=== PATIENT | male | born 1960 | race Caucasian/White ===

== ENCOUNTER 2018-04-16 10:10 | Inpatient (IN) | payer OTHER ==
[~2018-04-16] VITALS: Ht 175.3 cm; Wt 76.2 kg
[2018-04-16 10:53] LABS: BASOPHILS ABSOLUTE AUTO 0.03 K/mm3 (0.00-0.23); BASOPHILS PERCENT AUTO 1 % (0-2); EOSINOPHILS ABSOLUTE AUTO 0.01 K/mm3 (0.00-0.68); EOSINOPHILS PERCENT AUTO 0 % (0-6); Hematocrit 36.2 % (37.0-53.0); Hemoglobin 11.7 g/dL (13.5-17.5); IMMATURE GRAN ABSOLUTE AUTO 0.01 K/mm3 (0.00-0.10); IMMATURE GRAN PERCENT AUTO 0 % (0-1); LYMPHOCYTES ABSOLUTE AUTO 0.84 K/mm3 (0.84-5.20); LYMPHOCYTES PERCENT AUTO 20 % (21-46); MONOCYTES ABSOLUTE AUTO 0.32 K/mm3 (0.16-1.47); MONOCYTES PERCENT AUTO 8 % (4-13); Mean Corpuscular HGB 33.2 pg (26.0-34.0); Mean Corpuscular HGB Conc 32.3 g/dL (31.5-36.5); Mean Corpuscular Volume 103 fL (80-100); Mean Platelet Volume 10.4 fL (9.1-12.4); NEUTROPHILS ABSOLUTE AUTO 3.02 K/mm3 (1.96-9.15); NEUTROPHILS PERCENT AUTO 71 % (41-73); Platelet Count 58 K/mm3 (150-400); RDW Coefficient Variation 13.9 % (11.7-14.2); RDW Standard Deviation 52.9 fL (35.1-46.3); Red Blood Cell Count 3.52 M/mm3 (4.30-5.90); White Blood Cell Count 4.23 K/mm3 (4.00-11.30)
[2018-04-16 11:19] LABS: Alanine Aminotransfer (ALT/SGP 127 U/L (12-78); Albumin, Blood 3.3 g/dL (3.4-5.0); Albumin/Globulin Ratio 0.6 (0.8-1.8); Alk Phos 132 U/L (50-136); Anion Gap 14 mmol/L (6-16); Aspartate Aminotrans (AST/SGOT 247 U/L (12-37); Bilirubin, Total 1.3 mg/dL (0.1-1.0); Blood Urea Nitrogen 8 mg/dL (8-24); CO2, Blood 21 mmol/L (21-32); Calcium, Blood 8.3 mg/dL (8.5-10.1); Chloride, Blood 103 mmol/L (98-108); Creatinine, Blood 0.62 mg/dL (0.60-1.20); Globulin, Blood 5.6 g/dL (2.2-4.0); Glomerular Filtration Rate >60 (60-); Glucose, Blood 130 mg/dL (70-99); Sodium, Blood 138 mmol/L (136-145); Total Protein, Blood 8.9 g/dL (6.4-8.2)
[2018-04-16 12:30] LABS: International Normalized Ratio 1.18
[2018-04-16] MEDS ORDERED: K-Dur20 MEQ PO (14:10)
[2018-04-16] MEDS ORDERED: Ibuprofen Ib200 MG PO (18:01)
[2018-04-16] MEDS ORDERED: CYAN500 PO (18:01)
--- NOTE | 2018-04-16 18:21 | NUR ---
NURSING PCU DAYSHIFT SUMMARY: Assumed care of pt at approx 1750. Arrived from the ER via gurney, slid to unit bed and repositioned supine. A/O, pleasant, coopertive w/care. Speech is mildly slurred, general weakness noted. Mild tremors present w/arms extended. Current CIWA 4. Tele in place, NSR, no c/o CP/pressure, no noted edema. Respiratory status stable, denies dyspnea, no noted cough. Abd SNT, BT+, c/o mild nausea, voiding w/o difficulty per pt. PIV x2, banana bag currently infusing at 200cc/hr. No s/s of acute distress at this time. Pt appears to be resting comfortably. Educated pt on plan of care and w/d treatment, verbalized understanding. Bed alarm is set for safety purposes, cont to monitor until rpt is given to NOC RN.
--- NOTE | 2018-04-17 03:39 | NUR ---
PT PREFERS NOT TO TAKE TYLENOL FOR FEVER. TEMPERATURE TURNED DOWN IN THE ROOM. BLANKET REMOVED. CALL LIGHT WITHIN REACH. BED IN LOW POSITION.
[2018-04-17 04:17] LABS: BASOPHILS ABSOLUTE AUTO 0.02 K/mm3 (0.00-0.23); BASOPHILS PERCENT AUTO 1 % (0-2); EOSINOPHILS ABSOLUTE AUTO 0.03 K/mm3 (0.00-0.68); EOSINOPHILS PERCENT AUTO 1 % (0-6); Hematocrit 31.5 % (37.0-53.0); Hemoglobin 10.2 g/dL (13.5-17.5); IMMATURE GRAN ABSOLUTE AUTO 0.01 K/mm3 (0.00-0.10); IMMATURE GRAN PERCENT AUTO 0 % (0-1); LYMPHOCYTES ABSOLUTE AUTO 0.84 K/mm3 (0.84-5.20); LYMPHOCYTES PERCENT AUTO 23 % (21-46); MONOCYTES ABSOLUTE AUTO 0.38 K/mm3 (0.16-1.47); MONOCYTES PERCENT AUTO 10 % (4-13); Mean Corpuscular HGB 32.8 pg (26.0-34.0); Mean Corpuscular HGB Conc 32.4 g/dL (31.5-36.5); Mean Corpuscular Volume 101 fL (80-100); Mean Platelet Volume 11.6 fL (9.1-12.4); NEUTROPHILS ABSOLUTE AUTO 2.38 K/mm3 (1.96-9.15); NEUTROPHILS PERCENT AUTO 65 % (41-73); RDW Coefficient Variation 13.8 % (11.7-14.2); RDW Standard Deviation 51.5 fL (35.1-46.3); Red Blood Cell Count 3.11 M/mm3 (4.30-5.90); White Blood Cell Count 3.66 K/mm3 (4.00-11.30)
[2018-04-17 04:26] LABS: Platelet Count 41 K/mm3 (150-400)
[2018-04-17 04:33] LABS: Alanine Aminotransfer (ALT/SGP 100 U/L (12-78); Albumin, Blood 2.5 g/dL (3.4-5.0); Albumin/Globulin Ratio 0.5 (0.8-1.8); Alk Phos 96 U/L (50-136); Anion Gap 5 mmol/L (6-16); Aspartate Aminotrans (AST/SGOT 192 U/L (12-37); Bilirubin, Total 1.3 mg/dL (0.1-1.0); Blood Urea Nitrogen 9 mg/dL (8-24); Bun/Creatinine Ratio 14.4 (12.0-20.0); CO2, Blood 27 mmol/L (21-32); Calcium, Blood 7.6 mg/dL (8.5-10.1); Chloride, Blood 107 mmol/L (98-108); Creatinine, Blood 0.63 mg/dL (0.60-1.20); Globulin, Blood 5.1 g/dL (2.2-4.0); Glomerular Filtration Rate >60 (60-); Glucose, Blood 95 mg/dL (70-99); Potassium, Blood 3.9 mmol/L (3.5-5.5); Sodium, Blood 139 mmol/L (136-145); Total Protein, Blood 7.6 g/dL (6.4-8.2)
--- NOTE | 2018-04-17 05:39 | NUR ---
SHIFT SUMMARY - NO ACUTE CHANGES THROUGHOUT THE NIGHT. CIWA WNL DURING THE NIGHT. PT STOOD AT THE BEDSIDE X1, STABLE ON HIS LEGS, NOT REQUIRING A WALKER, OR GAIT BELT, AND URINATED CLEAR [place] COLORED URINE IN THE URINAL. FLUIDS AT BEDSIDE. CALL LIGHT WITHIN REACH. BED IN LOW POSITION.
--- NOTE | 2018-04-17 07:34 | NUR ---
NURSING PCU DAYSHIFT: Assumed care of pt at approx 0700. A/O, pleasant, coopertive w/care. Mild anxiety noted this morning along w/mild tremors of UE's when extended, current CIWA 3. Skin is fairly intact w/facial rash noted which is chronic per pt. C/O chronic numbness present in b/l hands. Tele in place, NSR w/PVC's, no c/o CP/pressure, BP stable, no noted edema. L/S cta t/o, O2 sat mid 90's on RA, denies dyspnea. Abd SNT, BT+, denies nausea, voiding w/o difficulty per pt. PIV x2, NS infusing at 150cc/hr. No s/s of acute distress at this time. Call light remains in reach, bed alarm set for safety purposes. Pt denies any current needs or questions regarding plan of care. Awaiting rounding from PMD, cont to monitor for any changes.
--- NOTE | 2018-04-17 17:11 | NUR ---
NURSING PCU DAYSHIFT SUMMARY: No significant changes noted t/o the shift. Pt has experienced an intermittent temp up to 101.2 though this improves w/environement management. Pt continues to be cooperative w/care and has been calling appropriately for assistance. Tremors have increased and pt has c/o mild anxiety, also stated that the current month was May and was unable to name the president. Current CIWA 8 and bed alarms remain in use for safety purposes. Pt OOB to shower w/assistance, tolerated well, linen change completed. Family at bedside this evening, update provided and questions answered. Pt denies any questions/needs at this time, call light in reach, cont to monitor until rpt is given to NOC RN.
[2018-04-18 03:43] LABS: BASOPHILS ABSOLUTE AUTO 0.01 K/mm3 (0.00-0.23); BASOPHILS PERCENT AUTO 0 % (0-2); EOSINOPHILS ABSOLUTE AUTO 0.07 K/mm3 (0.00-0.68); EOSINOPHILS PERCENT AUTO 2 % (0-6); Hematocrit 31.8 % (37.0-53.0); Hemoglobin 10.5 g/dL (13.5-17.5); IMMATURE GRAN ABSOLUTE AUTO 0.01 K/mm3 (0.00-0.10); IMMATURE GRAN PERCENT AUTO 0 % (0-1); LYMPHOCYTES PERCENT AUTO 30 % (21-46); MONOCYTES ABSOLUTE AUTO 0.39 K/mm3 (0.16-1.47); MONOCYTES PERCENT AUTO 9 % (4-13); Mean Corpuscular HGB 32.7 pg (26.0-34.0); Mean Corpuscular Volume 99 fL (80-100); Mean Platelet Volume 11.4 fL (9.1-12.4); NEUTROPHILS ABSOLUTE AUTO 2.58 K/mm3 (1.96-9.15); NEUTROPHILS PERCENT AUTO 59 % (41-73); RDW Coefficient Variation 13.4 % (11.7-14.2); RDW Standard Deviation 48.8 fL (35.1-46.3); Red Blood Cell Count 3.21 M/mm3 (4.30-5.90); White Blood Cell Count 4.36 K/mm3 (4.00-11.30)
[2018-04-18 03:48] LABS: Platelet Count 40 K/mm3 (150-400)
--- NOTE | 2018-04-18 05:42 | NUR ---
SHIFT SUMMARY - NO ACUTE CHANGES THROUGHOUT THIS SHIFT. PT WAS AMBULATORY TO [facility] WITH [facility] - PT WAS STABLE ON HIS FEET. CIWA WNL THROUGHOUT THE NIGHT. PT HAS DENIED ANY PAIN OR DISCOMFORT DURING THE NIGHT. CALL LIGHT WITHIN REACH. BED IN LOW POSITION. BED ALARM ON FOR PT SAFETY.
--- NOTE | 2018-04-18 18:00 | NUR ---
SHIFT SUMMARY PT RESTING IN CHAIR IN ROOM. AOX4. PT HAS BEEN INDEPENDENT IN ROOM PER PT. REPORTS SLIGHT TREMORS THAT ARE FELT BUT NOT SEEN. PT REPORTS FEELS MUCH BETTER. CIWA SCORES HAVE BEEN 1-2 T/O SHIFT. PT WAS CHANGED TO MED STATUS NO TELE. TELE REMOVED. NO ACUTE CHANGES T/O SHIFT. CALL LIGHT IN REACH.
[2018-04-19 04:02] LABS: BASOPHILS ABSOLUTE AUTO 0.01 K/mm3 (0.00-0.23); BASOPHILS PERCENT AUTO 0 % (0-2); EOSINOPHILS ABSOLUTE AUTO 0.08 K/mm3 (0.00-0.68); EOSINOPHILS PERCENT AUTO 2 % (0-6); Hematocrit 32.5 % (37.0-53.0); Hemoglobin 10.8 g/dL (13.5-17.5); IMMATURE GRAN ABSOLUTE AUTO 0.02 K/mm3 (0.00-0.10); IMMATURE GRAN PERCENT AUTO 0 % (0-1); LYMPHOCYTES ABSOLUTE AUTO 0.99 K/mm3 (0.84-5.20); LYMPHOCYTES PERCENT AUTO 21 % (21-46); MONOCYTES ABSOLUTE AUTO 0.42 K/mm3 (0.16-1.47); MONOCYTES PERCENT AUTO 9 % (4-13); Mean Corpuscular HGB Conc 33.2 g/dL (31.5-36.5); Mean Corpuscular Volume 99 fL (80-100); Mean Platelet Volume 12.1 fL (9.1-12.4); NEUTROPHILS ABSOLUTE AUTO 3.24 K/mm3 (1.96-9.15); NEUTROPHILS PERCENT AUTO 68 % (41-73); RDW Coefficient Variation 13.4 % (11.7-14.2); Red Blood Cell Count 3.27 M/mm3 (4.30-5.90); White Blood Cell Count 4.76 K/mm3 (4.00-11.30)
[2018-04-19 04:25] LABS: Platelet Count 42 K/mm3 (150-400)
--- NOTE | 2018-04-19 05:58 | NUR ---
SHIFT SUMMARY PATIENT ALERT AND ORIENTED AND INDEPENDENT T/O SHIFT. HE HAD NO ACUTE CHANGES TO VITALS OR LOC. PT SLEPT WELL T/O SHIFT. PT HAS HAD CIWA SCORES OF 2, DUE TO BASELINE TREMORS. HE DENIED ANY PAIN, DISCOMFORT, NAUSEA, VOMITING, OR HEADACHE. PT HAS BEEN COMMUNICATING EFFECTIVELY WITH STAFF AND HAS BEEN PLEASANT AND COOPERATIVE WITH VITALS AND ASSESSMENTS. HE HAS CALL LIGHT IN REACH AND USED IT APPROPRIATELY. HIS BED IS IN THE LOWEST POSITION AND HAS 2X SIDE RAILS IN PLACE. PT WILL CONTINUE TO BE MONITORED UNITL HANDOFF TO DAYSHIFT RN.
--- NOTE | 2018-04-19 07:30 | NUR ---
ASSUMED CARE PT SLEEPING IN ROOM RESTING COMFORTABLY. PER SYSTEMS CONSULTANT PT SLEPT WELL T/O NIGHT. CIWA SCORES REMAINED 1-2. PT DENIED ANY PAIN OR N/V. RESP EVEN UNLABORED. DENIES NEEDS. CALL LIGHT IS IN REACH. BED AT LOWEST LEVEL FOR SAFETY.
[2018-04-19] MEDS ORDERED: FOLI1 PO (12:02)
[2018-04-19] MEDS ORDERED: THIA100 PO (12:03)
--- NOTE | 2018-04-19 12:37 | NUR ---
PT DC. PT EDUCATED ON DC INFORMATION, AND MEDICATIONS. NEW MEDICATSION FAXED TO PHARMACY. 2 PIV'S REMOVED WITH CATHETER INTACT AND SITES WNL. ALL BELONGINGS GATHERED AND SENT WITH FAMILY. PT REQUESTS TO AMBULATE FROM ROOM REFUSES WC. FAMILY AT PT SIDE TO PROVIDE RIDE HOME. NO BELONGS LEFT IN ROOM.
== END 2018-04-19 12:37 | disposition home or self-care (01) | DRG 897 ==
LOC: ER 10:10 → PCU 15:36 → ICUW 17:06 → PCU 17:19
PROVIDERS: Physician Assistant; ADMIT Hospitalist
DX: F10.231 Alcohol dependence with withdrawal delirium (principal); D61.818 Other pancytopenia; K70.30 Alcoholic cirrhosis of liver without ascites; R79.89 Other specified abnormal findings of blood chemistry; E87.6 Hypokalemia; R25.1 Tremor, unspecified; R50.9 Fever, unspecified; R11.2 Nausea with vomiting, unspecified; F17.200 Nicotine dependence, unspecified, uncomplicated; Z23 Encounter for immunization
CPT/HCPCS: 36415; 71045; 76705; 80053; 82607; 82746; 83690; 83735; 84145; 85025; 85055; 85610; 85730; 87040; 90686; 93005; 93010; 96361; 96365; 96366; 96367; 96375; 96376; 97161; 99285-25; G0008; G8978; G8979; G8980; J1650; J2060; J2405; J3411; J3475; J7030; J7042

== ENCOUNTER 2018-06-04 08:08 | Day surgery (SDC) | payer OTHER ==
[~2018-06-04] VITALS: Ht 175.3 cm; Wt 77.3 kg
[~2018-06-04 08:08] MED LIST: CYAN500 PO; FOLI1 PO; Ibuprofen Ib200 MG PO; K-Dur20 MEQ PO; THIA100 PO
== END 2018-06-04 10:25 | disposition home or self-care (01) ==
LOC: ORSCSDS 08:08
PROVIDERS: Internal Medicine Gastroenterology
PROC: 0DB68ZX Excision of Stomach, Via Natural or Artificial Opening Endoscopic, Diagnostic (ICD-10-PCS; principal; 2018-06-04 09:15)
DX: Z13.810 Encounter for screening for upper gastrointestinal disorder (principal); K74.60 Unspecified cirrhosis of liver; K76.6 Portal hypertension; I85.00 Esophageal varices without bleeding; B19.20 Unspecified viral hepatitis C without hepatic coma; K31.89 Other diseases of stomach and duodenum; K25.9 Gastric ulcer, unspecified as acute or chronic, without hemorrhage or perforation
CPT/HCPCS: 88305; 88342; J2250; J7120

== ENCOUNTER 2019-01-14 06:21 | Day surgery (SDC) | payer OTHER ==
[~2019-01-14] VITALS: Ht 175.3 cm; Wt 71.5 kg
--- NOTE | 2019-01-14 08:15 | NUR ---
01/14/19 0815 Meme Sarkar FAILED ATTEMPTS TO OBTAIN BP READING RESULTED IN MINOR DELAY IN SEDATION START TIME
== END 2019-01-14 09:15 | disposition home or self-care (01) ==
LOC: ORSCSDS 06:21
PROVIDERS: Internal Medicine Gastroenterology
PROC: 0DBK8ZX Excision of Ascending Colon, Via Natural or Artificial Opening Endoscopic, Diagnostic (ICD-10-PCS; principal; 2019-01-14 08:00)
PROC: 0DBM8ZX Excision of Descending Colon, Via Natural or Artificial Opening Endoscopic, Diagnostic (ICD-10-PCS; principal; 2019-01-14 08:00)
DX: Z12.11 Encounter for screening for malignant neoplasm of colon (principal); D12.2 Benign neoplasm of ascending colon; K63.5 Polyp of colon; K64.8 Other hemorrhoids; K70.30 Alcoholic cirrhosis of liver without ascites; B19.20 Unspecified viral hepatitis C without hepatic coma; D69.6 Thrombocytopenia, unspecified; Z79.899 Other long term (current) drug therapy
CPT/HCPCS: 88305; J0461; J2250; J2405; J2704; J7120

== ENCOUNTER → 2022-05-02 | Outpatient (CLI) | payer OTHER ==
[2022-05-02 13:54] LABS: BASOPHILS ABSOLUTE AUTO 0.04 K/mm3 (0.00-0.23); BASOPHILS PERCENT AUTO 1 % (0-2); EOSINOPHILS ABSOLUTE AUTO 0.05 K/mm3 (0.00-0.68); EOSINOPHILS PERCENT AUTO 1 % (0-6); Hematocrit 42.4 % (37.0-53.0); Hemoglobin 14.6 g/dL (13.5-17.5); IMMATURE GRAN ABSOLUTE AUTO 0.02 K/mm3 (0.00-0.10); IMMATURE GRAN PERCENT AUTO 0 % (0-1); LYMPHOCYTES ABSOLUTE AUTO 1.47 K/mm3 (0.84-5.20); LYMPHOCYTES PERCENT AUTO 23 % (21-46); MONOCYTES ABSOLUTE AUTO 0.54 K/mm3 (0.16-1.47); MONOCYTES PERCENT AUTO 8 % (4-13); Mean Corpuscular HGB 32.4 pg (26.0-34.0); Mean Corpuscular HGB Conc 34.4 g/dL (31.5-36.5); Mean Corpuscular Volume 94 fL (80-100); Mean Platelet Volume 12.3 fL (9.1-12.4); NEUTROPHILS ABSOLUTE AUTO 4.35 K/mm3 (1.96-9.15); NEUTROPHILS PERCENT AUTO 67 % (41-73); Platelet Count 166 K/mm3 (150-400); RDW Coefficient Variation 12.9 % (11.7-14.2); RDW Standard Deviation 44.4 fL (35.1-46.3); Red Blood Cell Count 4.51 M/mm3 (4.30-5.90); White Blood Cell Count 6.47 K/mm3 (4.00-11.30)
[2022-05-02 18:23] LABS: Alanine Aminotransfer (ALT/SGP 22 U/L (12-78); Albumin, Blood 3.9 g/dL (3.4-5.0); Albumin/Globulin Ratio 1.1 (0.8-1.8); Alk Phos 83 U/L (50-136); Anion Gap 5 mmol/L (6-16); Aspartate Aminotrans (AST/SGOT 18 U/L (12-37); Bilirubin, Total 0.3 mg/dL (0.1-1.0); Blood Urea Nitrogen 18 mg/dL (8-24); Bun/Creatinine Ratio 20.8 (12.0-20.0); CHOL/HDL RATIO 3.1; CO2, Blood 29 mmol/L (21-32); Calcium, Blood 9.3 mg/dL (8.5-10.1); Chloride, Blood 105 mmol/L (98-108); Cholesterol 163 mg/dL (50-200); Creatinine, Blood 0.87 mg/dL (0.60-1.20); Free Thyroxine 0.91 ng/dL (0.70-1.60); Globulin, Blood 3.6 g/dL (2.2-4.0); Glomerular Filtration Rate 98 (60-); Glucose, Blood 97 mg/dL (70-99); HDL Cholesterol 52 mg/dL (>39); LDL/HDL RATIO 1.7; Low Density Lipoprotein Chol 87 mg/dL (0-110); Potassium, Blood 4.6 mmol/L (3.5-5.5); Sodium, Blood 139 mmol/L (136-145); Total Protein, Blood 7.5 g/dL (6.4-8.2); Triglycerides 122 mg/dL (30-160); Very Low Density Lipoprot Chol 24 mg/dL (6-32)
[2022-05-02 18:25] LABS: Triiodothyronine, Free 2.44 pg/mL (2.18-3.98)
== END | disposition home or self-care (01) ==
LOC: LAB SHORT 11:00
PROVIDERS: Family Medicine
DX: Z13.6 Encounter for screening for cardiovascular disorders (principal); E03.9 Hypothyroidism, unspecified; Z79.899 Other long term (current) drug therapy
CPT/HCPCS: 80053; 80061; 84439; 84443; 84481; 85025

== ENCOUNTER 2023-05-27 05:34 | Day surgery (SDC) | payer BC, OTHER ==
[~2023-05-27] VITALS: Ht 170.2 cm; Wt 70.8 kg
[2023-05-27] VITALS (9 sets, daily range): BP systolic 114–130; BP diastolic 61–81
[2023-05-27] MEDS ORDERED: VITAMIN D310 MC4 PO (06:33)
--- NOTE | 2023-05-27 06:36 | NUR ---
History, Chart, Medications and Allergies reviewed before start of procedure. Patient States Post-Procedure ride home has been arranged. Patient confirms NPO status and agrees with scheduled surgery.
[2023-05-27 07:50] LABS: Calcium, Blood 8.9 mg/dL (8.5-10.1); Creatinine, Blood 0.78 mg/dL (0.60-1.20); Potassium, Blood 3.9 mmol/L (3.5-5.5)
--- NOTE | 2023-05-27 10:08 | NUR ---
Discharge instructions reviewed with patient. Patient verbalizes understanding. Copy given to patient to take home. Patient up to Ambulate independently. Gait steady. Discharged via wheelchair to private car for ride home.
== END 2023-05-27 10:05 | disposition home or self-care (01) ==
LOC: ORD 05:34 → ORSCMMR 05:34 → ORD 08:00
PROVIDERS: Student in an Organized Health Care Education/Training Program; Surgery
PROC: 0JB70ZZ Excision of Back Subcutaneous Tissue and Fascia, Open Approach (ICD-10-PCS; principal; 2023-05-27 08:00)
DX: L72.0 Epidermal cyst (principal)
CPT/HCPCS: 80048; J0690; J1100; J1885; J2310; J2371; J2405; J2704; J3010; J7120